=== PATIENT | male | born 1975 | race Caucasian/White ===

== ENCOUNTER 2018-03-31 15:06 | Emergency (ER) | payer MEDICARE, OTHER ==
[~2018-03-31] VITALS: Ht 170.2 cm; Wt 72.6 kg
[2018-03-31] MEDS ORDERED: FOLI1TAB16 PO (16:10)
[2018-03-31] MEDS ORDERED: LACT10SO PO (16:10)
[2018-03-31] MEDS ORDERED: PANT40TA2 PO (16:10)
[2018-03-31] MEDS ORDERED: OXCA300T4 PO (16:10)
[2018-03-31] MEDS ORDERED: CHLO100T17 PO (16:10)
[2018-03-31] MEDS ORDERED: LEVE500T9 PO (16:10)
[2018-03-31] MEDS ORDERED: RISP1TAB7 PO (16:10)
[2018-03-31] MEDS ORDERED: BENZ2AMP PO (16:10)
[2018-03-31] MEDS ORDERED: ASPI-605 PO (16:10)
[2018-03-31] MEDS ORDERED: DEXT15DR6 OP (16:10)
[2018-03-31] MEDS ORDERED: GABA600T2 PO (16:10)
[2018-03-31] MEDS ORDERED: TAMS-3 PO (16:10)
[2018-03-31] MEDS ORDERED: DOCU50CA13 PO (16:10)
[2018-03-31] MEDS ORDERED: FLUT12AE IH (16:10)
--- NOTE | 2018-03-31 18:10 | NUR ---
pt does not to be admitted in the hospital pt says that has a home and will use the bus to go home. roseann dubose notified. Addendum: 03/31/18 at 1823 by VIVIANA pt axox4.
--- NOTE | 2018-03-31 18:21 | NUR ---
Patient does not wish to proceed with medical care recommended by Dr. goldsmith ). Patient given information related to possible complications, up to and including , which could occur as a result of leaving the hospital at this time. Patient verbalizes understanding of risks involved due to leaving against medical advice. Patient has signed AMA form.
[2018-03-31 18:24] VITALS: BP 129/77
== END 2018-03-31 18:28 | disposition left against medical advice (07) ==
LOC: ER 15:06
DX: M25.562 Pain in left knee (principal); K21.9 Gastro-esophageal reflux disease without esophagitis; Z88.8 Allergy status to other drugs, medicaments and biological substances
CPT/HCPCS: 73562; A4663

== ENCOUNTER 2020-07-30 19:48 | Inpatient (IN) | payer MEDICARE, OTHER ==
[~2020-07-30] VITALS: Ht 185.4 cm; Wt 69.4 kg
[~2020-07-30 19:48] MED LIST: ASPI-605 PO; BENZ2AMP PO; CHLO100T17 PO; DEXT15DR6 OP; DOCU50CA13 PO; FLUT12AE IH; FOLI1TAB16 PO; GABA600T12 PO; LACT10SO3 PO; LEVE500T9 PO; OXCA300T4 PO; PANT40TA2 PO; RISP1TAB7 PO; TAMS-3 PO
--- NOTE | 2020-07-30 20:37 | NUR ---
PATIENT HAS A WRIST BAND FROM [facility] WHICH PATIENT STATES HE WAS D/C'ED FROM THAT FACILITY 1 MONTH AGO. [facility] TO GET OLD MEDICAL RECORD BUT UNABLE TO DUE TO MEDICAL RECORDS OFFICE CLOSED AND WILL BE OPEN FROM [phone] TOMORROW.
[2020-07-30 20:57] LABS: BASOPHILS # (AUTO) 0.1 K/uL (0.0-8.0); BASOPHILS % (AUTO) 0.9 % (0.0-2.0); EOSINOPHILS # (AUTO) 0.1 K/uL (0.0-0.7); EOSINOPHILS % (AUTO) 1.9 % (0.0-7.0); HEMATOCRIT 42.8 % (36.7-47.1); HEMOGLOBIN 15.2 g/dL (12.5-16.3); LYMPHOCYTES # (AUTO) 2.1 K/uL (20.0-40.0); LYMPHOCYTES % (AUTO) 27.8 % (20.5-51.5); MEAN CORPUSCULAR HEMOGLOBIN 35.6 uug (23.8-33.4); MEAN CORPUSCULAR HGB CONC 36 g/dL (32.5-36.3); MEAN CORPUSCULAR VOLUME 100.3 fL (73.0-96.2); MONOCYTES # (AUTO) 0.7 K/uL (2.0-10.0); MONOCYTES % (AUTO) 8.9 % (0.0-11.0); NEUTROPHILS # (AUTO) 4.5 K/uL (1.8-8.9); NEUTROPHILS % (AUTO) 60.5 % (38.5-71.5); PLATELET COUNT (AUTO) 262 K/uL (152-348); RED BLOOD CELL COUNT(AUTO) 4.27 MIL/uL (4.06-5.63); WHITE BLOOD COUNT (AUTO) 7.4 K/uL (3.6-10.2)
[2020-07-30 20:59] LABS: CREATININE 0.7 mg/dL (0.6-1.3); POTASSIUM 3.7 mmol/L (3.5-5.1)
[2020-07-30 21:11] LABS: BILIRUBIN,DIRECT 0.1 mg/dL (0.0-0.2); BILIRUBIN,TOTAL 0.2 mg/dL (0.2-1.0); TOTAL PROTEIN, SERUM 6.5 g/dL (6.4-8.2)
[2020-07-30] MEDS ORDERED: RISP2TAB85 PO (21:14)
[2020-07-30] MEDS ORDERED: PRAZ2CAP2 PO (21:14)
[2020-07-30] MEDS ORDERED: HYDR-3980 PO (21:14)
[2020-07-30] MEDS ORDERED: CHLO100T24 PO (21:14)
[2020-07-30] MEDS ORDERED: ALBU18HF2 IH (21:14)
[2020-07-30] MEDS ORDERED: ONDA-104 PO (21:14)
[2020-07-30] MEDS ORDERED: LAMO100T17 PO (21:14)
[2020-07-30] MEDS ORDERED: PRAZ1CAP5 PO (21:14)
[2020-07-30] MEDS ORDERED: ATOR40TA PO (21:14)
[2020-07-30] MEDS ORDERED: LORA2DIS4 SL (21:14)
[2020-07-30] MEDS ORDERED: PHEN100C4 PO (21:14)
[2020-07-30] MEDS ORDERED: TRAZ-257 PO (21:14)
[2020-07-30] MEDS ORDERED: DRON10CA5 PO (21:14)
[2020-07-30] MEDS ORDERED: SERT50TA PO (21:14)
[2020-07-30] MEDS ORDERED: levETIRAcetam 250 MG TABLET PO ONE (21:45)
[2020-07-30] MEDS ORDERED: levETIRAcetam 250 MG TABLET ONE (21:48)
--- NOTE | 2020-07-30 21:49 | NUR ---
Report to Richie ROCHA on Med Surg
[2020-07-30] MEDS ORDERED: ALBUTEROL SULFATE 8 GM HFA.AER.AD IH PRN (22:15)
[2020-07-30] MEDS ORDERED: ALBUTEROL SULFATE 2.5 MG/3 ML NEBU NEB PRN (22:45)
--- NOTE | 2020-07-30 23:00 | NUR ---
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 NO COMPLAINTS OF PAIN.LEFT LEG IN A SPLINT, DUE TO FALL VERBALIZED.PIMPLE NOTED IN THE LOWER BACK , PICTURE TAKEN. SANDWICH GIVEN. RESTING COMFRTABLY.
[2020-07-30 23:12] VITALS: BP 117/72
[2020-07-31 04:20] VITALS: BP 119/75
[2020-07-31] MEDS: HYDROCODONE/APAP 10-325 MG TABLET PO PRN ×4 (05:54→16:33)
--- NOTE | 2020-07-31 05:59 | NUR ---
patient very agitated,sob as verblized, no sob noted pulse oximetry 98% in no respiratory distress, norco 1 tab po given for generalized pain. wanted oxygen applied i liter to pacify patient agitation sat 98%, incontinent of urine, resting comfortably.
[2020-07-31] MEDS: PHENYTOIN SODIUM EXTENDED 100 MG CAPSULE.SA PO SCH ×2 (08:10→16:33)
[2020-07-31] MEDS: ASPIRIN EC 81 MG TABLET.DR PO SCH (08:12)
[2020-07-31] MEDS: TRAZODONE 100 MG TABLET PO SCH (08:12)
[2020-07-31] MEDS: risperiDONE 2 MG TABLET PO SCH ×2 (08:13→16:33)
[2020-07-31] MEDS: SERTRALINE HCL 50 MG TABLET PO SCH (08:13)
[2020-07-31] MEDS: LAMOTRIGINE 100 MG TABLET PO SCH ×2 (08:13→16:33)
[2020-07-31] MEDS: ONDANSETRON HCL 4 MG TABLET PO SCH ×2 (08:14→16:33)
[2020-07-31] MEDS: PRAZOSIN HCL 1 MG CAPSULE PO SCH (08:18)
[2020-07-31] MEDS ORDERED: LORAZEPAM 1 MG TABLET PO PRN (08:30)
--- NOTE | 2020-07-31 08:45 | NUR ---
SEEN BY HOSPITALIST ANDRA FOR FOLLOW-UP WITH ORDERS. SEE NOTES
[2020-07-31] MEDS ORDERED: levETIRAcetam 500 MG TABLET PO SCH (09:00)
--- NOTE | 2020-07-31 10:46 | NUR ---
SEEN BY PHYSICAL THERAPIST FOR PT EVAL SEE NOTES
[2020-07-31] MEDS ORDERED: Z GUARD REMEDY PASTE 57 GM TUBE TOP PRN (11:00)
[2020-07-31] MEDS ORDERED: MAGNESIUM HYDROXIDE 30 ML LIQUID UDC PO PRN (11:00)
[2020-07-31] MEDS ORDERED: ACETAMINOPHEN 325 MG TABLET PO PRN (11:00)
[2020-07-31] MEDS ORDERED: ZOLPIDEM 5 MG TABLET PO PRN (11:00)
[2020-07-31] MEDS ORDERED: ONDANSETRON 4 MG/2 ML VIAL IV PRN (11:00)
[2020-07-31 11:36] VITALS: BP 114/66
--- NOTE | 2020-07-31 14:55 | NUR ---
SW CAME BY TO SPEAK WITH PATIENT. PER SW, PT NEEDS A PSYCH CONSULT. SPOKE TO PATIENT AND PATIENT IS REQUESTING A PSYCH CONSULT BECAUSE OF HIS POST TRAUMATIC STRESS DISORDER. CALLED AND LEFT A VOICEMAIL WITH DR CASANOVA, THE ON-CALL PSYCH PHYSICIAN.
--- NOTE | 2020-07-31 15:08 | NUR ---
Cake [employer]ringer Consultation: This SW met with the patient today to complete a social services technician assessment. Patient is a 45 year old male who was brought in to the ED by the cafeteria manager (Jey) of the transitional house he was residing in ([address] [place] [address]), stating that they are no longer able to provide the level of care patient requires. Patient was previously at [facility], where he resided for about 4 months. Prior to that, patient was residing in an assisted living facility, but could not remember the name. Patient is alert, oriented x 4, and receptive to speaking with this SW. Patient is wheelchair bound, and reports a medical hx of 3 strokes, spinal cord injury, TBI, lung cancer, PTSD, and Schizoaffective Disorder. Patient also reported a long history of substance abuse, reporting excessive daily drinking of beer, vodka, or Jd Lam (couldn't recall amount) and daily use of heroin. Patient reported that he stopped using all substances about 8 months ago, and that he has been sober for the past 8 months. Patient reported previously smoking 3 packs of cigarettes/day, however currently smokes only 1/2 a pack of cigarettes/day. Patient has Medicare and [facility], and reporting received about $800/month. Patient's emergency contact is his uncle, Brian Regalado, , and patient stated that he would be the one to contact for an emergency. Discharge plans discussed, and patient is in agreement with being placed in an appropriate facility that would be able to tend to his needs. SW explored patient's need for additional supportive services/resources, and patient requested to be seen by a psychiatrist for medication evaluation and management. BLAINE informed patient's nurses Mery and Hiral. Hiral entered a psych consult order for the patient. At this time, social services technician will continue to remain available to the patient, as needed. BLAINE informed KIP Ordonez about patient's DC plans, and BLAINE will work with case management, as needed, to ensure a safe and proper discharge.
[2020-07-31 16:00] VITALS: BP 115/64
[2020-07-31] MEDS: levETIRAcetam 500 MG TABLET PO SCH (16:32)
--- NOTE | 2020-07-31 16:48 | NUR ---
PT CONTINUES TO COMPLAIN OF ON AND OFF LOWER BACK PAIN INSPITE OF HYDROCODONE ADMINISTRATION ORDERED. WILL START LIDODERM PATCH TONIGHT AND INFORMED THE PATIENT. CALL LIGHT AND PERSONAL BELONGINGS WITHIN REACH. WILL CONTINUE TO MONITOR.
[2020-07-31 20:08] VITALS: BP 95/39
--- NOTE | 2020-07-31 20:10 | NUR ---
Patient in bed awake alertx4 and agitated .C/o lower back pain.Morphine 1 ml IVP given on left hand Iv.Tolerated well.O2 at 1LPM via NC saturating well.Denies SOB.NO s/s of distress noted. Continue safety measures .will continue to monitor.
[2020-07-31] MEDS ORDERED: PRAZOSIN HCL 1 MG CAPSULE PO SCH (21:00)
[2020-07-31] MEDS ORDERED: ENOXAPARIN SODIUM 40 MG/0.4 ML DISP.SYRIN SQ SCH (21:00)
[2020-07-31] MEDS ORDERED: ATORVASTATIN 40 MG TABLET PO SCH (21:00)
[2020-07-31 21:02] VITALS: BP 91/50
[2020-07-31] MEDS: MORPHINE SULFATE 2 MG/1 ML DISP.SYRIN IV PRN (21:03)
[2020-08-01 04:04] VITALS: BP 112/73
[2020-08-01] MEDS: MORPHINE SULFATE 2 MG/1 ML DISP.SYRIN IV PRN ×3 (04:34→13:53)
--- NOTE | 2020-08-01 05:45 | NUR ---
Patient c/o Rt ankle pain .Medicated with Morphine IVP with relief.Patient calm and cooperative with right ankle splint d/t a sprain noted with left lower weakness.Incontinence to both B&B.UA collected and sent to lab.
[2020-08-01 06:00] LABS: *BILIRUBIN,URIN NEGATIVE (NEGATIVE); *BLOOD, URINE NEGATIVE (NEGATIVE); *CLARITY,URINE CLEAR (CLEAR); *COLOR,URINE YELLOW (YELLOW); *KETONES,URINE NEGATIVE (NEGATIVE); *UROBILINOGEN,URINE 0.2 E.U./dl (NORMAL); LEUKOCYTE ESTERASE ,URINE NEGATIVE (NEGATIVE); NITRITE, URINE NEGATIVE (NEGATIVE); PH,URINE 6.5 (5.0-8.0); UGLUCOSE NEGATIVE (NEGATIVE)
[2020-08-01 07:06] LABS: BASOPHILS # (AUTO) 0.1 K/uL (0.0-8.0); BASOPHILS % (AUTO) 0.5 % (0.0-2.0); EOSINOPHILS # (AUTO) 0.2 K/uL (0.0-0.7); EOSINOPHILS % (AUTO) 1.4 % (0.0-7.0); HEMATOCRIT 40.5 % (36.7-47.1); HEMOGLOBIN 14.2 g/dL (12.5-16.3); LYMPHOCYTES # (AUTO) 1.4 K/uL (20.0-40.0); LYMPHOCYTES % (AUTO) 11.5 % (20.5-51.5); MEAN CORPUSCULAR HEMOGLOBIN 35.3 uug (23.8-33.4); MEAN CORPUSCULAR HGB CONC 35 g/dL (32.5-36.3); MEAN CORPUSCULAR VOLUME 100.8 fL (73.0-96.2); MONOCYTES # (AUTO) 0.6 K/uL (2.0-10.0); MONOCYTES % (AUTO) 5.3 % (0.0-11.0); NEUTROPHILS # (AUTO) 9.6 K/uL (1.8-8.9); NEUTROPHILS % (AUTO) 81.3 % (38.5-71.5); PLATELET COUNT (AUTO) 233 K/uL (152-348); RED BLOOD CELL COUNT(AUTO) 4.02 MIL/uL (4.06-5.63); WHITE BLOOD COUNT (AUTO) 11.8 K/uL (3.6-10.2)
[2020-08-01 07:18] LABS: BILIRUBIN,TOTAL 0.4 mg/dL (0.2-1.0); CREATININE 0.8 mg/dL (0.6-1.3); MAGNESIUM 1.8 mg/dL (1.8-2.4); PHOSPHOROUS 2.8 mg/dL (2.5-4.9); POTASSIUM 4.1 mmol/L (3.5-5.1); TOTAL PROTEIN, SERUM 5.8 g/dL (6.4-8.2)
[2020-08-01 07:23] LABS: THYROID STIMULATING HORMONE 2.143 mIU/mL (0.358-3.740)
[2020-08-01] MEDS: SERTRALINE HCL 50 MG TABLET PO SCH (08:25)
[2020-08-01] MEDS: PHENYTOIN SODIUM EXTENDED 100 MG CAPSULE.SA PO SCH (08:26)
[2020-08-01] MEDS: ONDANSETRON HCL 4 MG TABLET PO SCH (08:27)
[2020-08-01] MEDS: ASPIRIN EC 81 MG TABLET.DR PO SCH (08:27)
[2020-08-01] MEDS: TRAZODONE 100 MG TABLET PO SCH (08:27)
[2020-08-01] MEDS: LAMOTRIGINE 100 MG TABLET PO SCH (08:27)
[2020-08-01] MEDS: risperiDONE 2 MG TABLET PO SCH (08:28)
[2020-08-01] MEDS: levETIRAcetam 500 MG TABLET PO SCH (08:28)
[2020-08-01] MEDS: PRAZOSIN HCL 1 MG CAPSULE PO SCH (08:35)
[2020-08-01] MEDS ORDERED: ALBUTEROL SULFATE 8 GM HFA.AER.AD IH ONE (08:39)
[2020-08-01] MEDS ORDERED: NICOTINE 21 MG/24HR PATCH TD SCH (09:00)
--- NOTE | 2020-08-01 09:37 | NUR ---
VIDEO VISIT BY DR. GOSS - PSYCH. NO NEW ORDERS.
[2020-08-01] MEDS ORDERED: LEVE500T9 PO (10:48)
[2020-08-01] MEDS ORDERED: TRAZ-257 PO (10:48)
[2020-08-01 12:00] VITALS: BP 128/61
--- NOTE | 2020-08-01 15:16 | NUR ---
PATIENT SCHEDULED TO BE DISCHARGED. VSS. REPORT GIVEN TO PAOLO COPE AT [facility]. REPORT GIVEN TO AMBULANCE PERSONNEL. IV REMOVED, NO S/S OF BLEEDING. ID BAND REMOVED. DISCHARGE PLAN DISCUSSED WITH PATIENT, VERBALIZED UNDERSTANDING. BELONGINGS RETURNED TO PATIENT, BELONGINGS LIST SIGNED. NO S/S OF DISTRESS NOTED.
[2020-08-01] MEDS ORDERED: TRAZODONE 100 MG TABLET PO SCH (21:00)
== END 2020-08-01 15:30 | DRG 101 ==
LOC: ER 19:55 → MEDSURG3 22:07
PROVIDERS: ADMIT Nurse Practitioner Acute Care; ATTEND Nurse Practitioner Acute Care
DX: G40.919 Epilepsy, unspecified, intractable, without status epilepticus (principal); I69.351 Hemiplegia and hemiparesis following cerebral infarction affecting right dominant side; G89.4 Chronic pain syndrome; F25.9 Schizoaffective disorder, unspecified; G20 Parkinson's disease; F43.10 Post-traumatic stress disorder, unspecified; K21.9 Gastro-esophageal reflux disease without esophagitis; Z66 Do not resuscitate; Z99.3 Dependence on wheelchair; Z71.6 Tobacco abuse counseling; Z91.81 History of falling; F17.210 Nicotine dependence, cigarettes, uncomplicated; R53.1 Weakness; Z20.822 Contact with and (suspected) exposure to COVID-19
CPT/HCPCS: 36415; 70450; 71045; 73610; 73630; 80299; 83735; 84100; 84443; 85025; 85730; A4663; C1758; G0378; J1650; J2270; J3535; Q0162